=== PATIENT | male | born 1980 | race Caucasian/White ===

== ENCOUNTER 2021-01-21 08:49 | Emergency (ER) | payer BC, OTHER | END 2021-01-21 10:03 | disposition home or self-care (01) | LOC: NAV ERS 08:49 | DX: S62.336A Displaced fracture of neck of fifth metacarpal bone, right hand, initial encounter for closed fracture (principal); F17.210 Nicotine dependence, cigarettes, uncomplicated; W22.01XA Walked into wall, initial encounter | CPT/HCPCS: 29125 ==